=== PATIENT | female | born 1940 | race African-American/Black ===

== ENCOUNTER 2017-05-31 06:47 | Day surgery (SDC) | payer OTHER ==
[2017-05-31] VITALS (8 sets, daily range): BP systolic 123–140; BP diastolic 63–75
[~2017-05-31] VITALS: Ht 162.6 cm; Wt 81.2 kg
[~2017-05-31 06:47] MED LIST: ASPIRIN81 M1 ORAL; COQ10 SG 100 S1 EACH ORAL; COZAAR50 MG ORAL; MAGNESIUM CITR296 ML ORAL; NORVASC10 MG ORAL; OLIVE LEAF EXT250 MG ORAL; OLIVE LEAF PO; RED YEAST RICE E1 GM PO; RED YEAST RICE600 M1 ORAL; VITAMIN D1000 UNI1 ORAL; ZINC50 M1 ORAL
--- NOTE | 2017-05-31 07:34 | Pre-Procedure Note/Attestation ---
Pre-Procedure Note/Attestation Complete Prior to Procedure Planned Procedure: right Procedure Narrative: cataract extraction with implant right eye Indications for Procedure Pre-Operative Diagnosis: cataract right eye Attestation I attest that I discussed the nature of the procedure; its benefits; risks and complications; and alternatives (and the risks and benefits of such alternatives ), prior to the procedure, with the patient (or the patient's legal signs and displays sales representative). I attest that, if there was a reasonable possibility of needing a blood transfusion, the patient (or the patient's legal signs and displays sales representative) was given the [facility] standardized written summary, pursuant to the [place] Blood Safety Act ([place] Health and Safety Code # 1645, as amended). I attest that I re-evaluated the patient just prior to the surgery and that there has been no change in the patient's H&P, except as documented below: MOHAN DOUGHERTY May 31, 2017 07:34
[2017-05-31] MEDS ORDERED: Phenylephrine 2.5% Op 2ml Soln ONE (07:38)
[2017-05-31] MEDS ORDERED: Akten 3.5% 1ml Btl ONE (07:38)
[2017-05-31] MEDS ORDERED: Tobradex Opth Susp 2.5ml ONE (07:38)
[2017-05-31] MEDS ORDERED: Vigamox Opth Soln 3ml ONE (07:38)
[2017-05-31] MEDS ORDERED: Tropicamide 1% Opth 15ml Soln ONE (07:38)
[2017-05-31] MEDS: Tobradex Opth Susp 2.5ml RIGHT EYE SCH ×3 (07:51→08:04)
[2017-05-31] MEDS: Phenylephrine 2.5% Op 2ml Soln RIGHT EYE SCH ×3 (07:51→08:03)
[2017-05-31] MEDS: Vigamox Opth Soln 3ml RIGHT EYE SCH ×3 (07:51→08:03)
[2017-05-31] MEDS: Tropicamide 1% Opth 15ml Soln RIGHT EYE SCH ×3 (07:52→08:03)
[2017-05-31] MEDS: Flurbiprofen 0.03% Opth Sol 2.5ml RIGHT EYE SCH ×3 (07:52→08:04)
[2017-05-31] MEDS: Akten 3.5% 1ml Btl RIGHT EYE SCH ×3 (07:52→08:04)
[2017-05-31] MEDS ORDERED: NS Irrig 1000ml ONE (09:00)
[2017-05-31] MEDS ORDERED: LR 1000ml ONE (09:00)
[2017-05-31] MEDS ORDERED: Sterile Water Irrig 1000ml IRRIG ONE (09:00)
[2017-05-31] MEDS ORDERED: Midazolam 2mg/2ml Inj ONE (09:00)
--- NOTE | 2017-05-31 09:15 | Immediate Post-Op Evaluation ---
Immediate Post-Op Evalulation Immediate Post-Op Evalulation Date of Evaluation: May 31, 2017 Time of Evaluation: 09:43 IV Fluids: 400 ml of LR Blood Products: 0 Estimated Blood Loss: 0 Urinary Output: 0 Blood Pressure Systolic: 138 Blood Pressure Diastolic: 70 Pulse Rate: 55 Respiratory Rate: 19 O2 Sat by Pulse Oximetry: 98 Temperature (Fahrenheit): 97.8 Pain Score (1-10): 0 Nausea: No Vomiting: No Patient Status: awake, reacts Hydration Status: adequate Given Within 1 Hr of Incision: Donna Gomes CRNA May 31, 2017 09:15
--- NOTE | 2017-05-31 09:15 | Anethesia Preoperative Eval ---
Anesthesia Pre-op PMH/ROS General Date of Evaluation: May 31, 2017 Time of Evaluation: 08:57 Anesthesiologist: Vy ASA Score: ASA 2 Mallampati Score Class I : Soft palate, uvula, fauces, pillars visible Class II: Soft palate, uvula, fauces visible Class III: Soft palate, base of uvula visible Class IV: Only hard plate visible Mallampati Classification: Class II Surgeon: Salty Diagnosis: cataract right eye Surgical Procedure: right eye cataract removal with IOL placement Anesthesia History: none Family History: no anesthesia problems Allergies: Coded Allergies: KEITH INHIBITORS (Verified Allergy, 02/15/12) ACETAMINOPHEN (Verified Adverse Reaction, Unknown, BODY ACHE, 02/17/12) HYDROCODONE BIT (Verified Adverse Reaction, Unknown, BODY ACHE, 02/17/12) Medications: see eMAR Past Medical History Cardiovascular: Reports: HTN Hematology/Immune: 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 Exam Physician Exam Last Vital Signs Date Time Temp Pulse Resp B/P (MAP) Pulse Ox O2 Delivery O2 Flow Rate FiO2 05/31/17 07:58 97.8 55 18 140/75 97 Room Air Constitutional: NAD Neurologic: CN 2-12 intact Cardiovascular: RRR Respiratory: CTA Gastrointestinal: S/NT/ND Airway Exam Mallampati Score: Class II MO: full ROM: full Teeth: missing - missing few teeth, but upper and lower partials Dentures: upper, lower Anesthesia Pre-op A/P Studies Pre-op Studies: EKG - NSB Risk Assessment & Plan Plan: MAC Status Change Before Surgery: No Pre-Antibiotics Given Within 1 Hr of Incision: No Donna Mcclellan CRNA May 31, 2017 09:15
--- NOTE | 2017-05-31 09:16 | 48 Hour Post Anesthesia Eval ---
Post Anesthesia Evaluation Date of Evaluation: May 31, 2017 Time of Evaluation: 09:45 Blood Pressure Systolic: 138 0: 70 Pulse Rate: 55 Respiratory Rate: 18 Temperature (Fahrenheit): 97.8 O2 Sat by Pulse Oximetry: 100 Airway: patent Nausea: No Vomiting: No Pain Intensity: 0 Hydration Status: adequate Mental Status/LOC: patient returned to baseline Follow-up care needed: patient intructions given Donna Mcclellan CRNA May 31, 2017 09:15
--- NOTE | 2017-05-31 09:52 | Brief Operative Note ---
Immediate Post Operative Note Operative Note Pre-op Diagnosis: cataract right eye Procedure: phacoemulsification of cataract with implant right eye Post-op Diagnosis: same as pre-op Surgeon: mohan baez General Store Manager: none Anesthesiologist: gonzalo ayers md Anesthesia: MAC Specimen: none Complications: none Condition: stable Fluids: none Estimated Blood Loss: minimal Drains: none Implant(s) used?: Yes MOHAN BAEZ May 31, 2017 09:52
[2017-05-31] MEDS ORDERED: Lidocaine 1% MPF 10mg/ml 5ml ONE (10:46)
[2017-05-31] MEDS ORDERED: Dexamethasone 4mg/ml vial ONE (10:46)
[2017-05-31] MEDS ORDERED: BSS 500ml btl ONE (10:46)
[2017-05-31] MEDS ORDERED: Povidone-Iodine 5% opth solution ONE (10:47)
[2017-05-31] MEDS ORDERED: Sodium Hyaluronate 14 mg/ml 0.85ml ONE (10:47)
[2017-05-31] MEDS ORDERED: BSS 15ml BTL ONE (10:47)
[2017-05-31] MEDS ORDERED: EPINEPHrine 1mg/1ml Amp ONE (10:47)
--- NOTE | 2017-06-02 16:30 | Operative Note - Dictated ---
DATE OF OPERATION: 05/31/2017 PREOPERATIVE DIAGNOSIS: Cataract, right eye. POSTOPERATIVE DIAGNOSIS: Cataract, right eye. PROCEDURE: Phacoemulsification of cataract, right eye with placement of posterior chamber intraocular lens. SURGEON: Zachery Pond M.D. CIRCULATION MAN: None. ANESTHESIA: MAC/topical. ANESTHESIOLOGIST: Donna Mcclellan CRNA. INDICATION FOR PROCEDURE: Poor vision, right eye. DESCRIPTION OF FINDINGS: Nuclear sclerotic and cortical cataract, right eye with small pupil. DESCRIPTION OF PROCEDURE: The patient received a topical anesthetic block consisting of 3.5% Akten eye drops. The eye was prepped and draped in the usual manner. A lid speculum was placed. An operating Zeiss microscope was positioned. A temporal corneal groove was made with a jigna blade. A SuperSharp blade made a stab incision at the 12 o'clock position. A 0.1 mL of 1% nonpreserved intracameral lidocaine was injected. Healon was instilled into the anterior chamber and a 2.5/2.8 mm trapezoidal jigna blade was used to complete the temporal corneal wound. A cystotome was used to create an anterior capsular flap. Utrata forceps were used to complete the capsulorrhexis. BSS on a cannula was used to hydrodissect the nucleus. The lens nucleus phacoemulsified in a phaco-fracture technique. Remaining cortical material was removed with I/A and the posterior capsule polished with the I/A on Cap vac. Healon was instilled in a capsular bag and anterior chamber, and an Joselito foldable one-piece posterior chamber intraocular lens, model [id number], power 22.0 diopter, serial #[id number] was placed in the injector. The lens was put into the capsular bag. The I/A tip was used to remove the Healon and position in the lens. The wound edge was hydrated with BSS and a blunt-tipped cannula. The wound was checked and found to be watertight. The lid speculum was removed and a drop of TobraDex and Vigamox was placed. A clear plastic shield was taped over the eye. The patient tolerated the procedure well and left the operating room in good condition. Zachery Pond M.D. ([facility]) DR: TOMER JOB#: [id number] CC: EFREM
== END 2017-05-31 10:55 | disposition home or self-care (01) ==
LOC: SUR 06:47
DX: H25.11 Age-related nuclear cataract, right eye (principal); E11.9 Type 2 diabetes mellitus without complications; I10 Essential (primary) hypertension; E78.5 Hyperlipidemia, unspecified; Z96.653 Presence of artificial knee joint, bilateral; M19.90 Unspecified osteoarthritis, unspecified site; Z86.718 Personal history of other venous thrombosis and embolism; Z86.010 Personal history of colon polyps; Z83.3 Family history of diabetes mellitus; Z82.49 Family history of ischemic heart disease and other diseases of the circulatory system; Z79.82 Long term (current) use of aspirin
CPT/HCPCS: 66984; J0171; J1100; J2250; J7120; V2632; 94003; 94150